=== PATIENT | male | born 1980 | race Caucasian/White ===

== ENCOUNTER 2019-11-30 07:00 | Outpatient (RCR) | payer BC, SELFPAY ==
[2019-11-02 17:47] VITALS: BMI 27.4
--- NOTE | 2019-11-06 10:20 | HP.PTEVAL_ITS ---
Patient's Visit Information MAVERICK BOX is a 39 year old M referred to Physical Therapy by CALLIE Ruiz with a diagnosis of Right shoulder and arm. Date of Evaluation: 11/06/19 Physical Therapist: Priti Dickson DPT - Visit Plan Frequency: 3x /Week Duration: 3 Weeks Plan: Focus on centralization of s/s-US and e-stim- traction as tolerated. HEP given 11/05:Postural education, scap retractions, cervical retractions, chin tucks - Subjective Right arm burning and tingling-about 2 weeks- broke down and [facility]. 2014 had same pains- told him he herniated a disc in his neck- did PT and it felt better. Pain is located in the posterior shoulder- into the biceps and to the forearm on the top. Stiff neck last week but no problems this week- reports pain is dull and achy in the shoulder and sharp/shooting down the arm. Eases: placing his arm on over his head- biofreeze- e-stim from neighbor with heat. Best: 1-06/25 Worst: 12/23. Agg: any sharp or quick movements- trying to throw a ball killed him last night. Sleep: disturbed- back sleeper. Numbness and tingling in all the fingertips. No x-rays or MRI. Right hand dominate. No issues with finger dexterity or finisher special stocks strength. No ss on the left side. no REDMAN, blurred vision or dizziness. 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 Pretty active with his family. PMHx: epilepsy. Meds: carbomazopene- last seizure was 20 years ago. - Objective Posture: FH, RS, increased guarding of the cervical spine- can correct but does not maintain. Gait: guarding- decreased trunk rotation. ROM: shoulder/wrist/hand: WNL Cervical: WNL but reports pain with Right SB and rotation. Neurological mytomes: WFL. Sensation: WNL to gross touch. Strength: Shoulder/Elbow/Wrist/Industrial Pharmacist: WNL Cervical: 4+/5 isometrics Scap: fair. Palpation: tender along medial border of the scapula with trigger points throughout- tender throughout cervical paraspinals. Special Test: shoulder impingment: negative, Empty Can: negative, Spurlings: positive, Dural signs on right: positive - Goals Goal 1:: Patient will be I with HEP and progression Goal Time Frame: 4-6 Weeks Goal 2:: Patient will have no radiating s/s Goal Time Frame: 4-6 Weeks Goal 3:: Patient will maintain proper posture t/o tx session to demo increased scap s/s Goal Time Frame: 4-6 Weeks - Rehabilitation Potential Physical Therapy Diagnosis: Patient presents with hypmobility-he has decreased painfree ROM, strength and muscular endurance leading to poor posture and increased pain with ADL's. Rehabilitation Potential: Fair - Anticipated Interventions Patient/Client Instruction: Educate patient on: Benefits of Fitness Program Therapeutic Exercise to Include: Strength training, Endurance training, Postural training, Flexibilty training, Neuromotor development, Dynamic Lumbar Stabilization, Scapular Strength/Stabilization For the Purpose of:: To improve muscle performance and motor function Manual Therapy Techniques to Include: Mobilization, Functional dry needling, Soft tissue mobilization For the Purpose of:: To improve nutrient delivery to tissue TENS: Yes Cryotherapy (ice pack, ice massage): Yes Thermo therapy (hot pack): Yes Ultrasound (thermal/non thermal): Yes Intermittent cervical traction: Yes For the Purpose of:: To decrease pain Thank you for the opportunity to evaluate your patient. For Medicare and Medicare HMO plans, please review the plan of care and approve it. It will need to be FAXED BACK to us at [phone] for Medicare purposes. For Medicare only, by signing this I certify the plan of care. Please let me know if there are questions or concerns regarding this plan of care. Physician Signature: Date:
--- NOTE | 2019-11-30 08:17 | HP.PTDCSUM ---
It has been my pleasure to treat MAVERICK BOX referred by CALLIE Ruiz, with the diagnosis of Right shoulder and arm for a total of 10 visit(s). Discharge Date: Please see the following information for a summary of their discharge status. Subjective: Patient reports that he is really happy with progress and is 95% better- he only has symptoms very rarely and its when he over uses his arm or does heavy lifting % Improvement: 95 Objective/Function: Posture: good throughout. Gait: no deviation noted- good arm swing and trunk rotation. rom: WNl in all planes. Strength: 5/5 throughout UE and isometric cervical spine. Sensation: wnl. Palpation: not tender to touch Goal 1:: Patient will be I with HEP and progression Goal 2:: Patient will have no radiating s/s Goal 3:: Patient will maintain proper posture t/o tx session to demo increased scap s/s Plan: Discharge to [facility] If there are questions or concerns regarding this patient's physical therapy, please feel free to call me at [phone]. Thank you for the referral of this patient. Sincerely, Priti Dickson DPT
== END 2019-11-30 19:00 | disposition home or self-care (01) ==
LOC: PT 07:00
PROVIDERS: PCP Internal Medicine; Referring Provider Physician Assistant Surgical; Visit Provider Physician Assistant Surgical
DX: M25.511 Pain in right shoulder (principal); M79.601 Pain in right arm
CPT/HCPCS: 97012; 97035; 97110; 97162; 97530